=== PATIENT | female | born 2000 | race Caucasian/White ===

== ENCOUNTER 2023-11-14 11:24 | Emergency (ER) | payer OTHER, SELFPAY ==
--- NOTE | ~2023-11-14 | CT_ITS ---
EXAMINATION: CT ABDOMEN AND PELVIS WITH CONTRAST CLINICAL INFORMATION: 23-year-old female with right lower quadrant abdominal pain COMPARISON: None TECHNIQUE: Multidetector volumetric images were obtained from the superior aspect of the liver through the pubic symphysis following administration 85 mL of Omnipaque 350 intravenous contrast. Sagittal and coronal reformatted images were obtained on the technologist's workstation. Oral contrast: No This CT examination was performed using dose optimization techniques as appropriate, variously including the following: *Automated exposure control *Adjustment of mA and/or kV according to patient size (this includes techniques or standardized protocols for targeted exams where dose is matched to indication/reason for exam; i.e. extremities or head) *Use of iterative reconstruction technique DLP: 465 mGy-cm FINDINGS: LUNG BASES: The visualized lung bases are unremarkable. LIVER, GALLBLADDER, AND BILIARY TREE: The liver is normal in size, shape, and attenuation. No focal hepatic lesion or biliary ductal dilatation is present. The gallbladder is unremarkable with no evidence of radiopaque gallstones, gallbladder wall thickening, or obvious pericholecystic inflammatory changes. PANCREAS: Unremarkable. SPLEEN: Unremarkable. ADRENAL GLANDS: Unremarkable. KIDNEYS AND URETERS: There is 0.2 cm nonobstructing calculus seen in the lower pole of left kidney. There is no hydroureteronephrosis. There is nonobstructing 0.3 cm calculus seen in interpolar collecting system of right kidney. There is no hydroureteronephrosis. BLADDER: Unremarkable. GASTROINTESTINAL TRACT: The small and large bowel are unremarkable. The appendix is visualized, measured 0.6 cm in diameter, borderline but there are no inflammatory changes surrounding the appendix.. ABDOMINAL WALL: No significant hernia is appreciated. LYMPH NODES: Scattered mesenteric lymph nodes seen of nonpathological size or shape VASCULAR: Unremarkable. PELVIC VISCERA: There is trace of fluid in cul-de-sac right adnexa revealed no cysts. Left adnexa is unremarkable also. OSSEOUS STRUCTURES: Unremarkable. CT/CT abdomen pelvis w IV con IMPRESSION: 1. No evidence of appendicitis. 2. Bilateral nephrolithiasis without hydroureteronephrosis. 3. Trace of fluid in cul-de-sac. Fleischner guidelines were followed.
--- NOTE | 2023-11-14 11:37 | ED_ITS ---
HPI - Fever General Chief Complaint: Abdominal Pain Stated Complaint: Fever Time Seen by Provider: 11/14/23 12:06 Source: patient Mode of arrival: ambulatory History of Present Illness ED Provider: Dr Jones [facility] Narrative: 23-year-old female who presents with urinary frequency a couple of days ago and then reports back pain yesterday and now is having difficulty urination with some lower abdominal pelvic discomfort but denies any new cough/sore throat, denies any diarrhea but reports nausea without vomiting and was febrile this morning. Related Data Allergies Allergy/AdvReac Type Severity Reaction Status Date / Time No Known Allergies Allergy Verified 11/14/23 11:41 [No Known Allergies*] Review of Systems 2 Review of Systems: Pertinent positives and negatives as stated in [facility] Past Medical History Source: nursing notes reviewed Social History Social History Smoked in Last 30 Days: No Use of substances other than those prescribed or required for medical reasons: No Advance Directives: Yes Advance Directives Information Provided: Yes Advance Directives on File: No Patient : No Physical Exam 2 Vital Signs: Vital Signs: Last Vital Signs Temp 98.7 F 11/14/23 11:52 Pulse 91 11/14/23 15:06 Resp 18 11/14/23 15:06 BP 116/78 11/14/23 15:06 Pulse Ox 100 11/14/23 15:06 O2 Del Method Room Air 11/14/23 15:06 BMI result Body Mass Index 25.6 VITAL SIGNS: Reviewed. GENERAL: Well developed, well nourished, in no acute distress. HEAD: Normocephalic/atraumatic EYES: PERRLA, EOMI EARS: Ext canals without abnormality NOSE: Nares patent bilateral OROPHARYNX: no oral lesions noted, posterior pharynx clear NECK: Supple, no adenopathy LUNGS: Normal breath sounds. No adventitious sounds or accessory muscle use. SpO2<98> CARDIOVASCULAR: Regular rate and rhythm without noted murmurs ABDOMEN: Soft, non-tender, non-distended with bowel sounds. MUSCULOSKELETAL: No tenderness, deformities, or effusions noted on gross inspection. EXTREMITIES: No cyanosis, clubbing or edema. SKIN: Inspection of the skin reveals no rashes NEUROLOGIC: Alert and oriented x 4. Strength and sensation to light touch were grossly intact x 4. Course Course Course Narrative: This is a Rapid Medical Exam performed in triage by Jessy Parson PA-C. Full HPI, ROS and PE to be performed by primary ED provider. 23 year-old F w/no sig PMHx presenting to the ED c/o fever (Tmax 103) & suprapubic abdominal pain x yesterday. Was seen at and told to come to ED, that they found blood in her urine. Also reports L flank pain, nausea & lightheadedness. Denies V/D, vaginal bleeding/d/c. LMP last week of September. Last took Tylenol/Motrin 22:45 last night PE: Abdomen soft w/L suprapubic and L CVAT Plan: Labs, UA, U-preg orderd, +/-CT vs US Medications Administered Discontinued Medications Generic Name Dose Route Start Last Admin Trade Name Freq PRN Reason Stop Dose Admin Sodium Chloride 1,000 mls @ 999 mls/hr 11/14/23 13:00 11/14/23 15:25 Ns IV 11/14/23 14:00 Infused .Q1H1M JOON Infusion Iohexol 100 ml 11/14/23 16:15 11/14/23 16:15 Iohexol 350 Mg/Ml 100 Ml Infus..Btl IV 11/14/23 16:16 85 ml ONCE ONE Administration Medical Decision Making Medical Decision Making [facility] Narrative: 23-year-old male with history and clinical presentation, DDX: Pyelonephritis, cystitis, lower clinical suspicion for renal colic and no clinical suspicion for appendicitis. INTERVENTION: IV fluids I reviewed and interpreted all investigations and hematologic indices are negative for leukocytosis/anemia/thrombocytopenia. Chemistry indices are negative for MAIN/electrolyte or liver enzyme derangements. Urinalysis is positive for hematuria but no evidence to suggest urinary tract infection and urine is negative. Viral testing is negative for influenza/RSV/COVID- 19. CT scan is negative for evidence to suggest appendicitis/renal colic, there is no evidence hydronephrosis, there is trace fluid within the cul-de-sac which is likely physiologic in nature, patient is feeling somewhat improved. My interpretation is patient likely had a component of dehydration and may have passed a very small stone or may have a viral infection, she was encouraged to retest herself for COVID-19 in 2 days and to treat all fevers and body aches with Tylenol and ibuprofen. Differential Diagnosis Differential Diagnoses: The differential diagnosis associated with the presentation includes Please see the discussion above Admission/Observation Consideration of admission/observation: Escalation of care including admission/observation considered Please see the discussion above Lab Data MDM Lab Attestation statement: I reviewed the patient's lab results. Please see the discussion above 11/14/23 12:05 11/14/23 12:04 Labs: Lab Results 11/14/23 11/14/23 11/14/23 Range/Units 12:04 12:05 15:02 WBC 5.0 (4.8-10.8) X10*3/uL RBC 4.84 (4.20-5.50) X10*6/uL Hgb 14.1 (12.0-16.0) g/dl Hct 41.7 (37.0-47.0) % MCV 86.2 (80.0-98.0) fL MCH 29.1 (27.0-33.0) pg MCHC 33.8 (31.0-35.0) g/dl RDW 13.0 (11.0-16.0) % Plt Count 224 (160-400) X10*3/uL MPV 10.2 (9.4-12.3) fL Immature Gran % (Auto) 0.2 (0.0-0.4) % Neut % (Auto) 54.2 (45-73) % Lymph % (Auto) 30.0 (20-40) % Door % (Auto) 15.2 H (2-11) % Eos % (Auto) 0.2 (0-4) % Baso % (Auto) 0.2 (0-2) % Lymph # (Auto) 1.5 (1.2-4.9) X10*3/uL Door # (Auto) 0.8 (0.1-1.2) X10*3/uL Eos # (Auto) 0.0 (0.0-0.4) X10*3/uL Baso # (Auto) 0.0 (0.0-0.2) X10*3/uL Abs Immat Gran (auto) 0.01 (0.00-0.03) X10*3/uL Absolute Neuts (auto) 2.7 (2.0-8.3) x10*3/uL Absolute Nucleated RBC 0.000 (0.0-0.012) X10*3/uL Nucleated RBC % (auto) 0.0 (0.0-0.2) /100WBC Sodium 138 (135-145) mmol/L Potassium 3.4 (3.3-5.1) mmol/L Chloride 104 (96-108) mmol/L Carbon Dioxide 26 (22-29) mmol/L Anion Gap 11 L (12-20) BUN 7 L (9-16) mg/dL Creatinine 0.68 (0.5-1.4) mg/dL Estim Creat Clear Calc 111.7 Estimated GFR > 60 Random Glucose 74 (60-115) mg/dL Lactic Acid 0.8 (0.5-2.0) mmol/L Calcium 9.3 (8.4-10.2) mg/dL Magnesium 2.3 (1.6-2.6) mg/dL Total Bilirubin 0.4 (0.0-1.0) mg/dL Direct Bilirubin 0.1 (0.0-0.5) mg/dL AST 15 (5-31) U/L ALT 11 (0-31) U/L Alkaline Phosphatase 99 (39-117) U/L Total Protein 8.2 H (6.5-8.0) g/dL Albumin 4.4 (3.5-5.0) g/dL Lipase 15 (8-78) U/L Urine Color Yellow Urine Appearance Clear Urine pH 6.5 (5.0-9.0) Ur Specific [place] 1.025 (1.005-1.025) Urine Protein 30 (1+) H (Neg-Trace) mg/dL Urine Glucose (UA) Negative (Negative) mg/dL Urine Ketones >=160 (Negative) mg/dL Urine Blood Large (3+) H (Negative) Urine Nitrite Negative (Negative) Ur Leukocyte Esterase Negative (Negative) Urine RBC >20 H (0-2) /HPF Urine WBC 0-5 (0-5) /HPF Ur Squamous Epith Cells 6-10 (0-2) /HPF Urine Bacteria Trace (None Seen) Hyaline Casts 0-2 (0-2) /LPF Urine Test NEGATIVE (NEGATIVE) Influenza Type A (PCR) NEGATIVE (Negative) Influenza Type B (PCR) NEGATIVE (Negative) RSV RNA Qual (PCR) NEGATIVE (Negative) SARS-CoV-2 RNA (RT-PCR) NEGATIVE (Negative) Radiology Impression Discussion of test interpretation with radiology: I have reviewed the radiologist's reading. Radiologist Impression: Please see the discussion above Critical Care Time Critical Care Time Critical Care Time: Yes Total Critical Care Time: 45 Attestation: I personally attest to this time spent taking care of the patient. Discharge Plan Discharge Clinical Impression: Right flank pain Patient Disposition: Home, Self-Care Instructions: Flank Pain (ED) Additional Instructions: Continue stay well hydrated, treat all fevers and body aches with Tylenol and ibuprofen. Recommend taking a COVID 19 test in 2 days. Follow-up with your primary care doctor. Return to the ER for any worsening symptoms. Print Language: Georgian
[2023-11-14 11:38] VITALS: BP 128/83; PULSE 109; RESP 20; TEMP 37.2; O2SAT 98; BMI 25.6
[2023-11-14 11:52] VITALS: BP 102/66; PULSE 86; RESP 18; TEMP 37.1; O2SAT 98
--- NOTE | 2023-11-14 12:12 | PC.NURSE ---
Pt. states that she is unable to pee at this time- water provided. Awaiting urine spec.
[2023-11-14 12:13] LABS: MANUAL DIFF FLAG NO
[2023-11-14 12:14] LABS: Basophils Percent Auto 0.2 % (0-2); Eosinophils Percent Auto 0.2 % (0-4); Hematocrit 41.7 % (37.0-47.0); Hemoglobin 14.1 g/dl (12.0-16.0); Imm Gran Abs Auto 0.01 X10*3/uL (0.00-0.03); Imm Gran Pct Auto 0.2 % (0.0-0.4); Lymphocytes Absolute Auto 1.5 X10*3/uL (1.2-4.9); Mean Corpuscular HGB Conc 33.8 g/dl (31.0-35.0); Mean Corpuscular Hemoglobin 29.1 pg (27.0-33.0); Mean Corpuscular Volume 86.2 fL (80.0-98.0); Mean Platelet Volume 10.2 fL (9.4-12.3); Monocytes Absolute Auto 0.8 X10*3/uL (0.1-1.2); Monocytes Percent Auto 15.2 % (2-11); Neutrophils Absolute Auto 2.7 x10*3/uL (2.0-8.3); Neutrophils Percent Auto 54.2 % (45-73); Platelet Count 224 X10*3/uL (160-400); Red Blood Count 4.84 X10*6/uL (4.20-5.50)
[2023-11-14 12:26] LABS: Lactic Acid 0.8 mmol/L (0.5-2.0)
[2023-11-14 12:32] LABS: Alanine Aminotransferase 11 U/L (0-31); Albumin Level 4.4 g/dL (3.5-5.0); Alkaline Phosphatase 99 U/L (39-117); Anion Gap 11 (12-20); Aspartate Amino Transferase 15 U/L (5-31); Bilirubin Direct 0.1 mg/dL (0.0-0.5); Bilirubin Total 0.4 mg/dL (0.0-1.0); Blood Urea Nitrogen 7 mg/dL (9-16); Calcium 9.3 mg/dL (8.4-10.2); Carbon Dioxide 26 mmol/L (22-29); Chloride 104 mmol/L (96-108); Creatinine Clr Calc Pharmacy 111.7; Estimated Glomerular Filt Rate > 60; Glucose Random 74 mg/dL (60-115); Lipase 15 U/L (8-78); Magnesium 2.3 mg/dL (1.6-2.6); Potassium 3.4 mmol/L (3.3-5.1); Sodium 138 mmol/L (135-145); Total Protein 8.2 g/dL (6.5-8.0)
[2023-11-14 13:02] LABS: Influenza A PCR NEGATIVE (Negative); Influenza B PCR NEGATIVE (Negative); Resp Syncy Virus RNA Qual PCR NEGATIVE (Negative); SARS COV2 PCR INHOUSE NEGATIVE (Negative)
[2023-11-14] MEDS: 0.9 % Sodium Chloride 1,000 ML 999 ML IV (14:18)
[2023-11-14 15:06] VITALS: BP 116/78; PULSE 91; RESP 18; O2SAT 100
[2023-11-14 15:15] LABS: Appearance Urine Clear; Color Urine Yellow; Glucose Urine UA Negative (Negative); Leukocyte Esterase Urine Negative (Negative); Nitrite Urine Negative (Negative); PH 6.5 (5.0-9.0); Specific Gravity - Urine 1.025 (1.005-1.025); UMIC TRIGGER UACC YES; Urine Blood Large (3+) (Negative); Urine Ketones >=160 mg/dL (Negative); Urine Protein 30 (1+) mg/dL (Neg-Trace)
[2023-11-14 15:17] LABS: UPreg QC Valid YES; Urine Pregnancy NEGATIVE (NEGATIVE)
[2023-11-14 15:20] LABS: Bacteria Urine Trace (None Seen); Hyaline Casts Urine 0-2 /LPF (0-2); RBC Urine >20 /HPF (0-2); WBC Urine 0-5 /HPF (0-5)
[2023-11-14] MEDS: iohexoL 350 MG/ML 100 ML INFUS..BTL IV (16:15)
[2023-11-14 17:32] VITALS: BP 116/78; PULSE 91; RESP 18; TEMP 37.1; O2SAT 100
== END 2023-11-14 17:32 | disposition home or self-care (01) ==
PROVIDERS: Physician Assistant; Physician Assistant Medical; Emergency Provider Student in an Organized Health Care Education/Training Program
DX: R35.0 Frequency of micturition (principal); R10.2 Pelvic and perineal pain; R10.9 Unspecified abdominal pain; R10.31 Right lower quadrant pain; Z03.818 Encounter for observation for suspected exposure to other biological agents ruled out
CPT/HCPCS: 0241U; 36415; 74177; 80048; 80076; 81001; 81025; 83605; 83690; 83735; 85025; 87040; 96360; 99284; Q9967